=== PATIENT | male | born 1960 | race Caucasian/White ===

== ENCOUNTER 2021-07-15 13:52 | Emergency (ER) | payer OTHER, BC ==
[2021-07-15] MEDS ORDERED: Boostrix 0.5 ML (Tdap) VIAL ONE (14:59)
[2021-07-15] MEDS ORDERED: Bupivacaine PF 0.5% 30 ML VIAL ONE (14:59)
[2021-07-15] MEDS ORDERED: Bacitracin 1 PK ONE (15:29)
== END 2021-07-15 15:30 | disposition home or self-care (01) ==
LOC: CSHERS 13:52
DX: S61.012A Laceration without foreign body of left thumb without damage to nail, initial encounter (principal); I10 Essential (primary) hypertension; Z23 Encounter for immunization; W26.8XXA Contact with other sharp object(s), not elsewhere classified, initial encounter; Y92.89 Other specified places as the place of occurrence of the external cause; Y99.0 Civilian activity done for income or pay
CPT/HCPCS: 12002; 90471; 90715; S0020